=== PATIENT | male | born 1950 | race Caucasian/White ===

== ENCOUNTER 2018-01-03 20:36 | Emergency (ER) | payer MEDICARE, MEDICAID ==
[2018-01-03 20:36] VITALS: BMI 27.1
[2018-01-03] MEDS ORDERED: Morphine 4 MG/ML VIAL IV ONE (21:10)
[2018-01-03] MEDS ORDERED: Sodium Chloride 0.9% 1,000 ML IV ONE (21:10)
--- NOTE | 2018-01-03 21:10 | C.PDOC ---
History Of Present Illness 67 year old male presents to the ED for evaluation of left shoulder pain. Patient reports that today he fell while at home injuring his left shoulder, currently c/o pain and limitation of movement. Patient denies LOC, headache, weakness, numbness. Chief Complaint (Nursing): Upper Extremity Problem/Injury History Per: Patient History/Exam Limitations: no limitations Onset/Duration Of Symptoms: Hrs Current Symptoms Are (Timing): Still Present Quality: "Pain" Exacerbating Factor(s): Strenuous Use Of Affected Area, Movement Recent travel outside of the [place]: No Additional History Per: Patient Past Medical History Reviewed: Historical Data, Nursing Documentation, Vital Signs Vital Signs: Last Vital Signs Temp 98.6 F 01/03/18 22:36 Pulse 83 01/03/18 22:36 Resp 20 01/03/18 22:36 BP 150/90 01/03/18 22:36 Pulse Ox 100 01/03/18 23:23 - Medical History PMH: HIV, HTN, Hypercholesterolemia Denies: Depression Surgical History: No Surg Hx - [facility] Procedures LEG VARICOS V LIGA-STRIP (07/31/13) Family History: States: Unknown Family Hx - Social History Hx Alcohol Use: Yes Hx Substance Use: No - Immunization History Hx Tetanus Toxoid Vaccination: No Hx Influenza Vaccination: No Hx Pneumococcal Vaccination: No Review Of Systems Constitutional: Negative for: Fever, Chills Cardiovascular: Negative for: Chest Pain Respiratory: Negative for: Shortness of Breath Gastrointestinal: Negative for: Nausea, Vomiting Musculoskeletal: Positive for: Shoulder Pain Neurological: Negative for: Weakness, Numbness, Headache, Dizziness Physical Exam - Physical Exam Appears: Non-toxic, No Acute Distress Skin: Normal Color, Warm, Dry Head: Atraumatic, Normacephalic Eye(s): bilateral: Normal Inspection Oral Mucosa: Moist Neck: Normal ROM, Supple Chest: Symmetrical Cardiovascular: Rhythm Regular Respiratory: Normal Breath Sounds, No Rales, No Rhonchi, No Wheezing Gastrointestinal/Abdominal: Soft, No Tenderness, No Guarding, No Rebound Back: Normal Inspection Extremity: No Normal ROM (left shoulder due to pain), Tenderness (left shoulder) , Capillary Refill (< 2 seconds), No Swelling Pulses: Left Radial: Normal, Right Radial: Normal Neurological/Psych: Oriented x3, Normal Speech, Normal Sensation Gait: Steady ED Course And Treatment O2 Sat by Pulse Oximetry: 100 (ON RA) Pulse Ox Interpretation: Normal - Radiology CXR: Interpreted by Me, Viewed By Me - Other Rad left shpulder X-Ray: Interpreted by Me, Viewed By Me Interpretation: poost reduction-good position, no fracture noted. Medical Decision Making Medical Decision Making: Impression: left shoulder pain Plan: * Ativan 0.25 mg IVP * Morphine 4 mg IVP * IV fluids * Left shoulder X-Ray After procedure was done Patient is now alert, awake, oriented. Patient is has stable gait and is stable for D/C home. Disposition Counseled Patient/Family Regarding: Diagnosis - Disposition Referrals: Michaela Banda MD [Staff Provider] - [facility] [Outside] Disposition: HOME/ ROUTINE Disposition Time: 23:20 Condition: IMPROVED Instructions: Moderate Sedation in Adults, Shoulder Dislocation (DC), How to Use a Shoulder Sling Forms: [facility] (Trinidadian), Gen Discharge Inst Tajik Print Language: EAST TIMORESE - POA Present On Arrival: None - Clinical Impression Clinical Impression: Shoulder dislocation - Scribe Statement The provider has reviewed the documentation as recorded by the Scribe Jadiel Brito All medical record entries made by the Scribe were at my direction and personally dictated by me. I have reviewed the chart and agree that the record accurately reflects my personal performance of the history, physical exam, medical decision making, and the department course for this patient. I have also personally directed, reviewed, and agree with the discharge instructions and disposition. Proc Sedation INTRA-PROCEDURE - Medications Medications Given: Sodium Chloride (Sodium Chloride 0.9%) 1,000 mls @ 100 mls/hr IV .Q10H ONE Stop: 01/04/18 07:09 Last Admin: 01/03/18 21:18 Dose: 100 mls/hr eMAR Start Stop Document 01/03/18 21:18 [facility] (Rec: 01/03/18 21:39 [facility] [id number]) Intravenous Solution Start Date 01/03/18 Start Time 21:18 Discontinued Medications Lorazepam (Ativan) 2 mg IVP ONCE ONE Stop: 01/03/18 21:13 Last Admin: 01/03/18 21:18 Dose: 2 mg IVP Administration Document 01/03/18 21:18 [facility] (Rec: 01/03/18 21:38 [facility] [id number]) Charges for Administration # of IVP Administrations 1 Morphine Sulfate (Morphine) 4 mg IV ONCE ONE Stop: 01/03/18 21:11 Last Admin: 01/03/18 21:18 Dose: 4 mg eMAR Start Stop Document 01/03/18 21:18 [facility] (Rec: 01/03/18 21:38 [facility] [id number]) Intravenous Solution Start Date 01/03/18 Start Time 21:18 End Date 01/03/18 End time 21:19 Total Infusion Time 1 MAR Pain Assessment Document 01/03/18 21:18 [facility] (Rec: 01/03/18 21:38 [facility] [id number]) Pain Reassessment Is this a pain reassessment? Yes Propofol (Diprivan) 50 mg IV ONCE ONE Stop: 01/03/18 21:31 Proc Sedation PRE-PROCEDURE - Pre-Anesthesia Chief Complaint: Upper Extremity Problem/Injury Past Medical History: Medications Reviewed, Allergies Reviewed, Record Review Previous Surgies: Reviewed Family History/Social History: Reviewed - Physical Exam/Review of Systems Vital Signs Reviewed: Yes Cardiovascular: Regular Rate and Rhythm, Normal S1, S2 Respiratory/Chest: Clear to Auscultation, Good Air Exchange. denies: Respiratory Distress, Accessory Muscle Use Neurological: GCS=15, CN II-XII Intact, Speech Normal Abdomen: denies: Tenderness, Distention, Normal Bowel Sounds, Peritoneal Signs Mental Status: Alert and Oriented X 3 - Pre-Procedure Airway Assessment History of difficult intubation or surgical airway (i.e trach):: No Inability to extend neck:: No Mouth opening less than two finger breadth:: No Diagnosis of sleep apnea:: No Less than three finger breadth to hyoid bone:: No ASA Criteria: 1 - Healthy, normal. 2 - Mild systemic disease (No functional limitations, mildline obesity, DM withot complications, Hypertention). 3 - Severe systemic disease (Some functional limitation, stable angina, morbid obesity, controlled COPD/Asthma/CHF). 4 - Sever systemic disease constant threat to life (Unstable angina, active symptoms of COPD/Asthma, CHF/ Hypertension. 5 - Moribund ASA Clarification: ASA I Proc Sedation POST-PROCEDURE - Discharge Checklist Written MD order for Discharge: Yes Vital signs assessed and are consistent with pre-procedure reading: Yes Minimal nausea, vomiting, and dizziness: Yes Ambulates to pre-procedural level: Yes Alert and oriented to pre-procedural level: Yes Responsible adult escort present: Yes DISCHARGE INSTRUCTIONS GIVEN:: Yes
[2018-01-03] MEDS ORDERED: Morphine 4 MG/ML VIAL ONE (21:17)
[2018-01-03] MEDS ORDERED: Sodium Chloride 0.9% 1,000 ML ONE (21:18)
[2018-01-03] MEDS ORDERED: Propofol 10 mg/ml Inj (20 ML) ONE (21:20)
[2018-01-03] MEDS ORDERED: Propofol 10 mg/ml Inj (20 ML) IV ONE (21:30)
[2018-01-03 23:49] VITALS: BP 150/93; PULSE 75; RESP 16; TEMP 98.4; O2SAT 97
--- NOTE | 2018-01-04 17:27 | RAD ---
PROCEDURE: Radiographs of the Left Shoulder HISTORY: r/o dislocation COMPARISON: No prior. FINDINGS: BONES: Bone alignment and mineralization are normal. There is no acute displaced fracture or bone destruction. JOINTS: There is anterior inferior dislocation of the glenohumeral joint. The acromioclavicular joint is normal. SOFT TISSUES: Normal. OTHER FINDINGS: None. IMPRESSION: Anterior inferior dislocation of the glenohumeral joint.
--- NOTE | 2018-01-04 17:28 | RAD ---
PROCEDURE: Radiographs of the Left Shoulder HISTORY: s/p reduction COMPARISON: Plain radiographs performed earlier the same FINDINGS: BONES: Bone alignment and mineralization are normal. There is no acute displaced fracture or bone destruction. JOINTS: There is near normal alignment of the glenohumeral joint. Glenohumeral and acromioclavicular joints preserved. SOFT TISSUES: Normal. OTHER FINDINGS: None. IMPRESSION: Successful closed reduction with near normal alignment of the glenohumeral joint.
== END 2018-01-03 23:52 | disposition home or self-care (01) ==
LOC: C.ER 20:36
DX: S43.005A Unspecified dislocation of left shoulder joint, initial encounter (principal); W19.XXXA Unspecified fall, initial encounter; Y92.009 Unspecified place in unspecified non-institutional (private) residence as the place of occurrence of the external cause
CPT/HCPCS: 23650; 73030; 94770; 96374; 96375; 99285; J2060; J2270; J2704; J7030